=== PATIENT | female | born 1980 | race American Indian/Alaskan Native ===

== ENCOUNTER 2019-05-01 05:03 | Emergency (ER) | payer SELFPAY ==
--- NOTE | 2019-05-01 06:11 | XRay Report ---
CHEST 2 VIEWS INDICATION / CLINICAL INFORMATION: cough chest pain. COMPARISON: None available. FINDINGS: SUPPORT DEVICES: None. HEART / MEDIASTINUM: No significant abnormality. LUNGS / PLEURA: No significant pulmonary or pleural abnormality. No pneumothorax. ADDITIONAL FINDINGS: No significant additional findings. IMPRESSION: 1. No acute findings. Signer Name: Dot Shirley MD Signed: 05/01/2019 6:06 AM Workstation Name: [id number]
--- NOTE | 2019-05-01 07:04 | Emergency Department Report ---
HPI - General Chief Complaint: Upper Respiratory Infection Time Seen by Provider: 05/01/19 06:45 - HPI HPI: Room 19 The patient is a 38-year-old female presenting with a chief complaint of cough and congestion. The patient states she has been "sick" for 1 month. The patient states her symptoms including sneezing, coughing and headache. The patient states she took [id number] medications she improved slightly however Thursday her symptoms return. The patient states her cough is productive of greenish yellow sputum. Patient complains of headache and facial pain in addition to nasal congestion. Patient denies fever or rhinorrhea. Patient states she developed hoarseness 5 days ago but has been improving. ED Past Medical Hx - Past Medical History Previous Medical History?: Yes Hx Asthma: Yes Additional medical history: Endometiosis. siatica - Surgical History Past Surgical History?: Yes Hx Appendectomy: Yes Additional Surgical History: Hysterectomy. D&C - Family History Family history: no significant - Social History Smoking Status: Former Smoker (none 2 weeks) Substance Use Type: None (denies illicit drug use), Alcohol (occasional) - Medications Home Medications: Home Medications Medication Instructions Recorded Confirmed Last Taken Type ALBUTEROL Inhaler (OR & NICU) 2 puff IH QID PRN #1 inhalation 05/01/19 Unknown Rx [Proair] Benzonatate [Tessalon Perles] 100 mg PO Q8HR #30 capsule 05/01/19 Unknown Rx Erythromycin Base [Erythromycin 500 mg PO Q6H #56 tablet 05/01/19 Unknown Rx BASE 500MG TAB] Pentazocine/Naloxone [Talwin Nx] 1 each PO Q6H PRN #14 tablet 05/01/19 Unknown Rx ED Review of Systems ROS: Stated complaint: ONOFRE/CP/COLD SX/VOMITING Other details as noted in HPI Constitutional: denies: fever Eyes: denies: eye pain ENT: congestion Respiratory: cough Endocrine: no symptoms reported Gastrointestinal: denies: abdominal pain Genitourinary: denies: dysuria Musculoskeletal: denies: back pain Neurological: headache Physical Exam - Physical Exam Vital Signs: Vital Signs 05/01/19 06:14 Temperature 97.6 F Pulse Rate 75 Respiratory 17 Rate Blood Pressure 125/99 [Left] O2 Sat by Pulse 98 Oximetry Physical Exam: GENERAL: The patient is well-developed well-nourished female lying on stretcher not appearing to be in acute distress. [] HEENT: Normocephalic. Atraumatic. Extraocular motions are intact. Patient has moist mucous membranes. Oropharynx clear NECK: Supple. No meningitic signs are noted. There is mild tender submandibular lymphadenopathy CHEST/LUNGS: Clear to auscultation. There is no respiratory distress noted. Occasional cough HEART/CARDIOVASCULAR: Regular. There is no tachycardia. There is no gallop rub or murmur. ABDOMEN: Abdomen is soft, nontender. Patient has normal bowel sounds. There is no abdominal distention. SKIN: There is no rash. There is no edema. There is no diaphoresis. NEURO: The patient is awake, alert, and oriented. The patient is cooperative. The patient has normal speech MUSCULOSKELETAL: There is no evidence of acute injury. ED Course Vital Signs 05/01/19 06:14 Temperature 97.6 F Pulse Rate 75 Respiratory 17 Rate Blood Pressure 125/99 [Left] O2 Sat by Pulse 98 Oximetry ED Medical Decision Making - Lab Data Result diagrams: 05/01/19 06:58 05/01/19 06:58 Laboratory Tests 05/01/19 05/01/19 05/01/19 06:55 06:58 06:58 WBC 8.2 RBC 4.11 Hgb 13.0 Hct 38.9 MCV 95 MCH 32 MCHC 34 RDW 14.8 Plt Count 157 Lymph % (Auto) 20.2 [place] % (Auto) 7.7 H Eos % (Auto) 4.0 Baso % (Auto) 0.1 Lymph # 1.7 [place] # 0.6 Eos # 0.3 Baso # 0.0 Seg Neutrophils % 68.0 Seg Neutrophils # 5.6 Sodium 140 Potassium 4.1 Chloride 103.6 Carbon Dioxide 26 Anion Gap 15 BUN 11 Creatinine 0.7 Estimated GFR > 60 BUN/Creatinine Ratio 16 Glucose 99 Calcium 8.4 CK-MB (CK-2) < 1.0 Troponin T < 0.010 Influenza A (Rapid) Negative Influenza B (Rapid) Negative - EKG Data -: EKG Interpreted by Me EKG shows normal: sinus rhythm Rate: normal - EKG Data When compared to previous EKG there are: previous EKG unavailable Interpretation: other (early repolarization. No ischemic changes seen) - Radiology Data Radiology results: report reviewed (chest x-ray), image reviewed (chest x-ray) interpreted by me: Chest x-ray-no focal infiltrate, no pneumothorax [facility] [address] [place] [address] XRay Report Signed Patient: HELIO HOPPER MR#: [id number] : 1980 Acct:[id number] Age/Sex: 38 / F ADM Date: 05/01/19 Loc: ED Attending Dr: Ordering Physician: TOI BELL MD Date of Service: 05/01/19 Procedure(s): XR chest routine 2V Accession Number(s): [id number] cc: ED MD RAY Fluoro Time In Minutes: CHEST 2 VIEWS INDICATION / CLINICAL INFORMATION: cough chest pain. COMPARISON: None available. FINDINGS: SUPPORT DEVICES: None. HEART / MEDIASTINUM: No significant abnormality. LUNGS / PLEURA: No significant pulmonary or pleural abnormality. No pneumothorax. ADDITIONAL FINDINGS: No si gnificant additional findings. IMPRESSION: 1. No acute findings. Signer Name: Dot Shirley MD Signed: 05/01/2019 6:06 AM Workstation Name: [id number] Transcribed By: HRC Dictated By: Dot Shirley MD Electronically Authenticated By: Dot Shirley MD Signed Date/Time: 05/01/19605 DD/ 5 TD/TT: - Differential Diagnosis sinusitis, bronchitis, pneumonia Critical care attestation.: If time is entered above; I have spent that time in minutes in the direct care of this critically ill patient, excluding procedure time. ED Disposition Clinical Impression: Bronchitis, Sinusitis Disposition: DC-01 TO HOME OR SELFCARE Is pt being admited?: No Does the pt Need Aspirin: No Condition: Stable Instructions: Chronic Bronchitis (ED) Prescriptions: Erythromycin Base [Erythromycin BASE 500MG TAB] 500 mg PO Q6H #56 tablet ALBUTEROL Inhaler (OR & NICU) [Proair] 2 puff IH QID PRN #1 inhalation PRN Reason: Shortness Of Breath Pentazocine/Naloxone [Talwin Nx] 1 each PO Q6H PRN #14 tablet PRN Reason: Pain Benzonatate [Tessalon Perles] 100 mg PO Q8HR #30 capsule Referrals: EDILBERTO BELTRAN MD [Staff Physician] - 3-5 Days Time of Disposition: 08:10
[2019-05-01] MEDS ORDERED: ACETAMINOPHEN 500 MG TAB PO ONE (07:08)
[2019-05-01] MEDS ORDERED: ACETAMINOPHEN 500 MG TAB ONE (07:11)
[2019-05-01 07:30] LABS: Basophils % (Auto) 0.1 % (0.0-1.8); Eosinophils # (Auto) 0.3 K/mm3 (0.0-0.4); Hematocrit 38.9 % (30.3-42.9); Lymphocytes # (Auto) 1.7 K/mm3 (1.2-5.4); Lymphocytes % (Auto) 20.2 % (13.4-35.0); Mean Corpuscular HGB Conc 34 % (30-34); Mean Corpuscular Volume 95 fl (79-97); Monocytes # (Auto) 0.6 K/mm3 (0.0-0.8); Monocytes % (Auto) 7.7 % (0.0-7.3); Platelet Count 157 K/mm3 (140-440); Red Blood Count 4.11 M/mm3 (3.65-5.03); Red Cell Distribution Width 14.8 % (13.2-15.2)
[2019-05-01 07:43] LABS: BUN/Creatinine Ratio 16; Blood Urea Nitrogen 11 mg/dL (7-17); Calcium 8.4 mg/dL (8.4-10.2); Hemolysis Index 7
[2019-05-01 07:44] LABS: Creatine Kinase MB < 1.0 ng/mL (0.0-4.0)
[2019-05-01 09:15] VITALS: BP 130/86
== END 2019-05-01 08:35 | disposition home or self-care (01) ==
LOC: ED 05:03
DX: J40 Bronchitis, not specified as acute or chronic (principal); J01.90 Acute sinusitis, unspecified
CPT/HCPCS: 36415; 71046; 80048; 82550; 82553; 84484; 85025; 87400; 93005; 93010

== ENCOUNTER 2019-06-25 19:21 | Emergency (ER) | payer SELFPAY ==
[2019-06-25] MEDS ORDERED: ASPIRIN 325 MG TAB PO ONE (20:32)
[2019-06-25 20:58] LABS: Basophils % (Auto) 0.2 % (0.0-1.8); Eosinophils # (Auto) 0.2 K/mm3 (0.0-0.4); Eosinophils % (Auto) 2.2 % (0.0-4.3); Hematocrit 39.8 % (30.3-42.9); Hemoglobin 13.1 gm/dl (10.1-14.3); Lymphocytes # (Auto) 2.9 K/mm3 (1.2-5.4); Lymphocytes % (Auto) 30.3 % (13.4-35.0); Mean Corpuscular HGB Conc 33 % (30-34); Mean Corpuscular Volume 95 fl (79-97); Monocytes # (Auto) 0.5 K/mm3 (0.0-0.8); Monocytes % (Auto) 5.6 % (0.0-7.3); Platelet Count 167 K/mm3 (140-440); Red Blood Count 4.19 M/mm3 (3.65-5.03); Red Cell Distribution Width 14.7 % (13.2-15.2)
--- NOTE | 2019-06-25 20:58 | XRay Report ---
CHEST 1 VIEW INDICATION / CLINICAL INFORMATION: Chest Pain. COMPARISON: 05/01/2019 FINDINGS: SUPPORT DEVICES: None. HEART / MEDIASTINUM: The LUNGS / PLEURA: Since. No pneumothorax. ADDITIONAL FINDINGS: No significant additional findings. IMPRESSION: 1. No acute findings. Signer Name: Augustine Maurice MD Signed: 06/25/2019 8:54 PM Workstation Name: [id number]
[2019-06-25 21:17] LABS: BUN/Creatinine Ratio 23; Blood Urea Nitrogen 14 mg/dL (7-17); Calcium 8.8 mg/dL (8.4-10.2); Hemolysis Index 15
[2019-06-25] MEDS ORDERED: MORPHINE 4 MG/1 ML INJ IV ONE (22:09)
[2019-06-25] MEDS ORDERED: methOCARBAMOL 1,000 MG in SODIUM CHLORIDE 0.9% 250ML 250 ML IV ONE (22:10)
[2019-06-25] MEDS ORDERED: ONDANSETRON 4 MG ODT TAB PO ONE (22:48)
[2019-06-25] MEDS ORDERED: ONDANSETRON 4 MG/2 ML INJ ONE (22:50)
--- NOTE | 2019-06-25 22:53 | Emergency Department Report ---
ED General Adult HPI - General Chief complaint: Chest Pain Stated complaint: CHEST PAIN,SHOULDER PAIN Time Seen by Provider: 06/25/19 22:03 Source: patient Mode of arrival: Ambulatory Limitations: No Limitations - History of Present Illness Initial comments: Patient is a 39-year-old [place] female who has a past medical history of sciatica who is presenting with back pain and neck pain with radiation to the right arm and right leg. The patient states symptoms started early this morning. She denies trauma. Patient says some mild nausea with no vomiting. Patient states that the pain in the right shoulder near the trapezius is now radiating into her right side of her chest. States it is a constant tight sensation. She has mild shortness of breath associated with her pain. Patient states her neck pain is worse when she turns her head to the right. Pains are aching and throbbing at 10 out of 10 in severity. Patient's denies fevers chills or neck stiffness. - Related Data Previous Rx's Medication Instructions Recorded Last Taken Type ALBUTEROL Inhaler (OR & NICU) 2 puff IH QID PRN #1 inhalation 05/01/19 Unknown Rx [Proair] Benzonatate [Tessalon Perles] 100 mg PO Q8HR #30 capsule 05/01/19 Unknown Rx Erythromycin Base [Erythromycin 500 mg PO Q6H #56 tablet 05/01/19 Unknown Rx BASE 500MG TAB] Pentazocine/Naloxone [Talwin Nx] 1 each PO Q6H PRN #14 tablet 05/01/19 Unknown Rx HYDROcodone/APAP 5-325 [[place] 1 each PO Q6HR PRN #14 tablet 06/26/19 Unknown Rx 5/325] methOCARBAMOL [Robaxin TAB] 500 mg PO Q6H PRN #14 tablet 06/26/19 Unknown Rx Allergies Allergy/AdvReac Type Severity Reaction Status Date / Time ibuprofen Allergy Hives Verified 05/01/19 05:15 latex Allergy Hives Verified 05/01/19 05:16 shellfish derived Allergy Hives Verified 05/01/19 05:16 tramadol Allergy Hives Verified 05/01/19 05:16 ED Review of Systems ROS: Stated complaint: CHEST PAIN,SHOULDER PAIN Other details as noted in HPI Comment: All other systems reviewed and negative ED Past Medical Hx - Past Medical History Previous Medical History?: Yes Hx Asthma: Yes Additional medical history: Endometiosis. sciatica - Surgical History Hx Appendectomy: Yes Additional Surgical History: Hysterectomy. D&C - Social History Smoking Status: Current Every Day Smoker Substance Use Type: None - Medications Home Medications: Home Medications Medication Instructions Recorded Confirmed Last Taken Type ALBUTEROL Inhaler (OR & NICU) 2 puff IH QID PRN #1 inhalation 05/01/19 Unknown Rx [Proair] Benzonatate [Tessalon Perles] 100 mg PO Q8HR #30 capsule 05/01/19 Unknown Rx Erythromycin Base [Erythromycin 500 mg PO Q6H #56 tablet 05/01/19 Unknown Rx BASE 500MG TAB] Pentazocine/Naloxone [Talwin Nx] 1 each PO Q6H PRN #14 tablet 05/01/19 Unknown Rx HYDROcodone/APAP 5-325 [[place] 1 each PO Q6HR PRN #14 tablet 06/26/19 Unknown Rx 5/325] methOCARBAMOL [Robaxin TAB] 500 mg PO Q6H PRN #14 tablet 06/26/19 Unknown Rx ED Physical Exam - General Limitations: No Limitations General appearance: alert, anxious, in distress (secondary to pain) - Head Head exam: Present: atraumatic, normocephalic - Eye Eye exam: Present: normal appearance, PERRL, EOMI - ENT ENT exam: Present: mucous membranes moist - Neck Neck exam: Present: normal inspection, tenderness (the right trapezius), full ROM. Absent: lymphadenopathy - Respiratory Respiratory exam: Present: normal lung sounds bilaterally, chest wall tenderness. Absent: respiratory distress, wheezes, rales, rhonchi - Cardiovascular Cardiovascular Exam: Present: regular rate, normal rhythm, normal heart sounds. Absent: systolic murmur, diastolic murmur, rubs, gallop - GI/Abdominal GI/Abdominal exam: Present: soft, normal bowel sounds. Absent: distended, tenderness, guarding, rebound - Extremities Exam Extremities exam: Present: normal inspection - Back Exam Back exam: Present: normal inspection - Neurological Exam Neurological exam: Present: alert, oriented X3 - Psychiatric Psychiatric exam: Present: normal affect, normal mood - Skin Skin exam: Present: warm, dry, intact, normal color. Absent: rash ED Course Vital Signs 06/25/19 19:29 Temperature 98.6 F Pulse Rate 89 Respiratory 18 Rate Blood Pressure 148/101 O2 Sat by Pulse 100 Oximetry ED Medical Decision Making - Lab Data Result diagrams: 06/25/19 20:36 06/25/19 20:36 Lab Results 06/25/19 06/25/19 06/25/19 Range/Units 20:36 20:36 23:16 WBC 9.7 (4.5-11.0) K/mm3 RBC 4.19 (3.65-5.03) M/mm3 Hgb 13.1 (10.1-14.3) gm/dl Hct 39.8 (30.3-42.9) % MCV 95 (79-97) fl MCH 31 (28-32) pg MCHC 33 (30-34) % RDW 14.7 (13.2-15.2) % Plt Count 167 (140-440) K/mm3 Lymph % (Auto) 30.3 (13.4-35.0) % [place] % (Auto) 5.6 (0.0-7.3) % Eos % (Auto) 2.2 (0.0-4.3) % Baso % (Auto) 0.2 (0.0-1.8) % Lymph # 2.9 (1.2-5.4) K/mm3 [place] # 0.5 (0.0-0.8) K/mm3 Eos # 0.2 (0.0-0.4) K/mm3 Baso # 0.0 (0.0-0.1) K/mm3 Seg Neutrophils % 61.7 (40.0-70.0) % Seg Neutrophils # 6.0 (1.8-7.7) K/mm3 Sodium 138 (137-145) mmol/L Potassium 3.9 (3.6-5.0) mmol/L Chloride 102.7 (98-107) mmol/L Carbon Dioxide 21 L (22-30) mmol/L Anion Gap 18 mmol/L BUN 14 (7-17) mg/dL Creatinine 0.6 L (0.7-1.2) mg/dL Estimated GFR > 60 ml/min BUN/Creatinine Ratio 23 % Glucose 96 (65-100) mg/dL Calcium 8.8 (8.4-10.2) mg/dL Troponin T < 0.010 < 0.010 (0.00-0.029) ng/mL - EKG Data -: EKG Interpreted by Sd EKG shows normal: sinus rhythm, axis, intervals, QRS complexes, ST-T waves Rate: normal - EKG Data Interpretation: normal EKG - Radiology Data CHEST 1 VIEW INDICATION / CLINICAL INFORMATION: Chest Pain. COMPARISON: 05/01/2019 FINDINGS: SUPPORT DEVICES: None. HEART / MEDIASTINUM: The LUNGS / PLEURA: Since. No pneumothorax. ADDITIONAL FINDINGS: No significant additional findings. IMPRESSION: 1. No acute findings. Signer Name: Augustine Maurice MD Signed: 06/25/2019 8:54 PM Workstation Name: [id number] - Medical Decision Making Patient is a 39-year-old female complaining of some right trapezius shoulder pain radiating to the right chest. Cardiac enzymes within normal limits. X-ray is within normal limits as well shows no abnormality to the lungs. Patient be started on muscle relaxant be discharged home. Critical care attestation.: If time is entered above; I have spent that time in minutes in the direct care of this critically ill patient, excluding procedure time. ED Disposition Clinical Impression: Atypical chest pain, Cervical radiculopathy Disposition: DC-01 TO HOME OR SELFCARE Is pt being admited?: No Does the pt Need Aspirin: No Condition: Stable Instructions: Chest Pain (ED), Cervical Radiculopathy (ED) Referrals: CHELITA ISAAC MD [Staff Physician] - 3-5 Days Time of Disposition: 00:34
[2019-06-26] MEDS ORDERED: HYDROcodone/ACETAMINOPHEN 5-325 MG TAB PO ONE (00:48)
[2019-06-26] MEDS ORDERED: HYDROcodone/ACETAMINOPHEN 5-325 MG TAB ONE (00:49)
[2019-06-26 01:41] VITALS: BP 122/80
== END 2019-06-26 01:48 | disposition home or self-care (01) ==
LOC: ED 19:21
DX: M54.12 Radiculopathy, cervical region (principal); R07.89 Other chest pain; J45.909 Unspecified asthma, uncomplicated; F17.200 Nicotine dependence, unspecified, uncomplicated; Z90.710 Acquired absence of both cervix and uterus; Z88.8 Allergy status to other drugs, medicaments and biological substances; Z88.6 Allergy status to analgesic agent; Z91.040 Latex allergy status; Z91.013 Allergy to seafood
CPT/HCPCS: 36415; 71045; 80048; 84484; 85025; 93005; 93010; 96374; 99284; J2270; J2405; J2800; J7050; Q0162